=== PATIENT | male | born 1965 | race Caucasian/White ===

== ENCOUNTER 2016-02-11 16:40 | Inpatient (IN) | payer OTHER ==
[~2016-02-11] VITALS: Ht 177.8 cm; Wt 75.0 kg
[~2016-02-11 16:40] MED LIST: DOCU1CAP39 PO; MELO-1 PO; NEUR400C PO; OXYC-426 PO; WALKER WHEELS/F1 MIS; ZYVO600T PO
[2016-02-11 16:41] VITALS: BP 140/90; PULSE 97; RESP 18; TEMP 98.1; O2SAT 100
[2016-02-11] MEDS ORDERED: oxyCODONE/ACETAMINOPHEN 5 MG/325 MG TAB PO ONE (18:45)
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
[2016-02-11 19:43] LABS: BICARBONATE 27.4 MEQ/L (21.0-32.0); POTASSIUM 3.8 MEQ/L (3.5-5.1)
[2016-02-11 19:57] LABS: AUTOMATED NEUTROPHIL # 6.4 TH/MM3 (1.8-7.7); BASOPHIL # 0.1 TH/MM3 (0-0.2); BASOPHIL % 0.7 % (0.0-2.0); EOSINOPHIL # 0.6 TH/MM3 (0-0.4); EOSINOPHIL % 5.1 % (0.0-4.0); HEMATOCRIT 36.1 % (39.0-51.0); HEMO FLAGS DIFF FINAL; LYMPH % 27.7 % (9.0-44.0); LYMPHOCYTE # 3.1 TH/MM3 (1.0-4.8); MEAN CELL VOLUME 87.7 FL (80.0-100.0); MEAN CORPUSCULAR HEMOGLOBIN 28.3 PG (27.0-34.0); MEAN CORPUSCULAR HGB CONC 32.3 % (32.0-36.0); MONO % 8.6 % (0.0-8.0); NEUT % 57.9 % (16.0-70.0); PLATELET COUNT 419 TH/MM3 (150-450); RED BLOOD COUNT 4.12 MIL/MM3 (4.50-5.90); RED CELL DISTRIBUTION WIDTH 14.6 % (11.6-17.2); WHITE BLOOD COUNT 11.1 TH/MM3 (4.0-11.0)
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
[2016-02-11] MEDS ORDERED: ACETAMINOPHEN/HYDROcodone 325 MG/5 MG TAB PO PRN (21:00)
[2016-02-11] MEDS ORDERED: BISACODYL 10 MG SUPP PR PRN (21:00)
[2016-02-11] MEDS ORDERED: ONDANSETRON HCL 4 MG/2 ML VIAL IVP PRN (21:00)
[2016-02-11] MEDS ORDERED: ACETAMINOPHEN 325 MG TAB PO PRN (21:00)
[2016-02-11 21:02] LABS: APTT (PATIENT) 27.3 SEC (24.3-30.1); PROTHROMBIN TIME - PATIENT 11.2 SEC (9.8-11.6)
[2016-02-11 21:21] VITALS: BP 136/88; PULSE 88; RESP 18; TEMP 98; O2SAT 100
[2016-02-11] MEDS: SODIUM CHLORIDE 0.9% FLUSH 5 ML FLUSH FLUSH SCH (21:33)
[2016-02-11] MEDS: HEPARIN-D5W INJ 250 ML IV SCH (21:35)
[2016-02-11] MEDS: MORPHINE SULFATE 4 MG/ML INJ IV PRN (21:42)
[2016-02-11] MEDS ORDERED: Vancomycin Consult Pharmacy 1 EA OTHER SCH (22:45)
[2016-02-11] MEDS ORDERED: VANCOMYCIN 1,500 MG/NS 500 ML IV ONE ×2 (23:00)
[2016-02-12] VITALS: BP 137/80; PULSE 89; RESP 16; TEMP 97; O2SAT 92
[2016-02-12] MEDS: MORPHINE SULFATE 4 MG/ML INJ IV PRN ×6 (00:34→11:57)
[2016-02-12] MEDS ORDERED: HEPARIN SODIUM - IV 10,000 UNITS/10 ML VIAL IV PRN ×2 (02:45)
[2016-02-12 04:27] LABS: APTT (PATIENT) 36.9 SEC (24.3-30.1)
[2016-02-12 08:00] VITALS: BP 133/74; PULSE 84; RESP 18; TEMP 97.4; O2SAT 94
[2016-02-12] MEDS: GABAPENTIN 400 MG CAP PO SCH ×3 (08:14→16:34)
[2016-02-12] MEDS: SODIUM CHLORIDE 0.9% FLUSH 5 ML FLUSH FLUSH SCH ×2 (08:15→20:33)
[2016-02-12] MEDS: SODIUM CHLORIDE 0.9% FLUSH 5 ML FLUSH FLUSH PRN ×2 (09:08→16:33)
[2016-02-12 10:58] LABS: AUTOMATED NEUTROPHIL # 6.2 TH/MM3 (1.8-7.7); BASOPHIL # 0.1 TH/MM3 (0-0.2); BASOPHIL % 1.3 % (0.0-2.0); EOSINOPHIL # 0.7 TH/MM3 (0-0.4); EOSINOPHIL % 6.6 % (0.0-4.0); HEMATOCRIT 34.1 % (39.0-51.0); HEMO FLAGS DIFF FINAL; LYMPH % 26.7 % (9.0-44.0); LYMPHOCYTE # 2.9 TH/MM3 (1.0-4.8); MEAN CELL VOLUME 87.3 FL (80.0-100.0); MEAN CORPUSCULAR HEMOGLOBIN 28.7 PG (27.0-34.0); MEAN CORPUSCULAR HGB CONC 32.9 % (32.0-36.0); MONO % 8.2 % (0.0-8.0); NEUT % 57.2 % (16.0-70.0); PLATELET COUNT 337 TH/MM3 (150-450); RED BLOOD COUNT 3.91 MIL/MM3 (4.50-5.90); RED CELL DISTRIBUTION WIDTH 14.9 % (11.6-17.2); WHITE BLOOD COUNT 10.9 TH/MM3 (4.0-11.0)
[2016-02-12 11:10] LABS: APTT (PATIENT) 42.2 SEC (24.3-30.1)
[2016-02-12 11:12] LABS: ALT (GPT) 36 U/L (12-78); ANION GAP 10 MEQ/L (5-15); AST (GOT) 21 U/L (15-37); BICARBONATE 25.3 MEQ/L (21.0-32.0); BLOOD UREA NITROGEN 8 MG/DL (7-18); CHLORIDE 108 MEQ/L (98-107); GLOMERULAR FILTRATION RATE 117 ML/MIN (>89); POTASSIUM 3.9 MEQ/L (3.5-5.1); SODIUM (NA) 143 MEQ/L (136-145)
[2016-02-12 11:14] LABS: ALKALINE PHOSPHATASE 69 U/L (45-117); TOTAL BILIRUBIN ADULT 0.3 MG/DL (0.2-1.0)
[2016-02-12 12:00] VITALS: BP 128/78; PULSE 88; RESP 18; TEMP 96.8; O2SAT 94
[2016-02-12] MEDS: VANCOMYCIN 1,000 MG/NS 250 ML IV SCH ×4 (12:01→19:42)
[2016-02-12] MEDS: HEPARIN-D5W INJ 250 ML IV SCH (12:10)
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
[2016-02-12] MEDS: ACETAMINOPHEN/HYDROcodone 325 MG/10 MG TAB PO PRN ×3 (15:05→23:35)
[2016-02-12] MEDS: HYDROmorphone HCL PF 1 MG/ML VIAL IV PUSH PRN ×2 (16:31→20:39)
[2016-02-12 17:17] LABS: APTT (PATIENT) 45.3 SEC (24.3-30.1)
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
[2016-02-12 20:00] VITALS: BP 124/84; PULSE 92; RESP 19; TEMP 97.6; O2SAT 97
[2016-02-12] MEDS: CEFEPIME INJ 2,000 MG in SODIUM CHLORIDE 0.9% INJ 100 ML IV SCH (20:43)
[2016-02-13] MEDS: HYDROmorphone HCL PF 1 MG/ML VIAL IV PUSH PRN ×7 (00:35→22:49)
[2016-02-13] MEDS: ACETAMINOPHEN/HYDROcodone 325 MG/10 MG TAB PO PRN ×5 (02:36→20:37)
[2016-02-13] MEDS ORDERED: PHARMACY ORDERED LAB XX ONE (03:45)
[2016-02-13] MEDS: CEFEPIME INJ 2,000 MG in SODIUM CHLORIDE 0.9% INJ 100 ML IV SCH ×3 (04:10→20:16)
[2016-02-13] MEDS: HEPARIN-D5W INJ 250 ML IV SCH ×2 (04:29→21:08)
[2016-02-13] MEDS: VANCOMYCIN 1,000 MG/NS 250 ML IV SCH ×2 (04:45)
[2016-02-13 07:05] LABS: APTT (PATIENT) 39.9 SEC (24.3-30.1)
[2016-02-13 08:00] VITALS: BP 115/75; PULSE 87; RESP 17; TEMP 95.6; O2SAT 98
[2016-02-13] MEDS: SODIUM CHLORIDE 0.9% FLUSH 5 ML FLUSH FLUSH SCH ×2 (08:11→20:16)
[2016-02-13] MEDS: GABAPENTIN 400 MG CAP PO SCH ×3 (08:11→16:55)
[2016-02-13 12:00] VITALS: BP 140/80; PULSE 94; RESP 18; TEMP 97.7; O2SAT 99
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
[2016-02-13] MEDS ORDERED: VANCOMYCIN 1,000 MG/NS 250 ML IV SCH ×2 (14:00)
[2016-02-13 16:00] VITALS: BP 123/73; PULSE 96; RESP 17; TEMP 98.7; O2SAT 96
[2016-02-13 20:00] VITALS: BP 140/83; PULSE 84; RESP 21; TEMP 98.4; O2SAT 96
[2016-02-13] MEDS: SODIUM CHLORIDE 0.9% FLUSH 5 ML FLUSH FLUSH PRN (22:48)
[2016-02-14] VITALS: BP 132/81; PULSE 82; RESP 21; TEMP 97.1; O2SAT 98
[2016-02-14] MEDS: ACETAMINOPHEN/HYDROcodone 325 MG/10 MG TAB PO PRN ×5 (00:40→21:39)
[2016-02-14] MEDS: HYDROmorphone HCL PF 1 MG/ML VIAL IV PUSH PRN ×6 (02:58→23:28)
[2016-02-14] MEDS: SODIUM CHLORIDE 0.9% FLUSH 5 ML FLUSH FLUSH PRN ×3 (02:58→06:09)
[2016-02-14] MEDS: CEFEPIME INJ 2,000 MG in SODIUM CHLORIDE 0.9% INJ 100 ML IV SCH ×3 (04:50→19:41)
[2016-02-14 05:44] LABS: HEMATOCRIT 31.6 % (39.0-51.0); MEAN CELL VOLUME 87.5 FL (80.0-100.0); MEAN CORPUSCULAR HEMOGLOBIN 29.4 PG (27.0-34.0); MEAN CORPUSCULAR HGB CONC 33.6 % (32.0-36.0); PLATELET COUNT 291 TH/MM3 (150-450); RED BLOOD COUNT 3.62 MIL/MM3 (4.50-5.90); RED CELL DISTRIBUTION WIDTH 14.4 % (11.6-17.2); REVIEW FLAG FINAL; WHITE BLOOD COUNT 10.2 TH/MM3 (4.0-11.0)
[2016-02-14] MEDS ORDERED: PHARMACY ORDERED LAB XX ONE (05:45)
[2016-02-14 05:55] LABS: PROTHROMBIN TIME - PATIENT 10.7 SEC (9.8-11.6)
[2016-02-14 08:00] VITALS: BP 143/84; PULSE 86; RESP 17; TEMP 97.4; O2SAT 98
[2016-02-14] MEDS: GABAPENTIN 400 MG CAP PO SCH ×6 (08:27→17:38)
[2016-02-14] MEDS: SODIUM CHLORIDE 0.9% FLUSH 5 ML FLUSH FLUSH SCH ×2 (08:30→19:45)
[2016-02-14 12:00] VITALS: BP 152/80; PULSE 73; RESP 17; TEMP 97.6; O2SAT 98
[2016-02-14] MEDS ORDERED: PROPOFOL 200 MG/20 ML AMP IV ONE (12:00)
[2016-02-14] MEDS ORDERED: *morphine SULFATE 8 MG/ML PERIprocedure ONLY ONE (14:26)
[2016-02-14] MEDS ORDERED: DO NOT ADM ANY ANTICOAGULANT DRUGS XX PRN (14:45)
[2016-02-14 15:58] LABS: APTT (PATIENT) 26.8 SEC (24.3-30.1)
[2016-02-14 16:00] VITALS: BP 152/92; PULSE 87; RESP 18; TEMP 97.1; O2SAT 99
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
[2016-02-14] MEDS ORDERED: HEPARIN SODIUM - IV 10,000 UNITS/10 ML VIAL IV PRN ×2 (18:00)
[2016-02-14] MEDS: HEPARIN-D5W INJ 250 ML IV SCH (18:44)
[2016-02-14 20:00] VITALS: BP 133/86; PULSE 78; RESP 20; TEMP 98; O2SAT 97
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
[2016-02-15] VITALS: BP 128/82; PULSE 80; RESP 20; TEMP 97; O2SAT 96
[2016-02-15] MEDS: ACETAMINOPHEN/HYDROcodone 325 MG/10 MG TAB PO PRN ×6 (01:34→22:03)
[2016-02-15] MEDS: HYDROmorphone HCL PF 1 MG/ML VIAL IV PUSH PRN ×6 (03:28→23:57)
[2016-02-15] MEDS: CEFEPIME INJ 2,000 MG in SODIUM CHLORIDE 0.9% INJ 100 ML IV SCH ×3 (03:28→20:29)
[2016-02-15] MEDS: HEPARIN-D5W INJ 250 ML IV SCH ×2 (04:36→20:38)
[2016-02-15] MEDS: SODIUM CHLORIDE 0.9% FLUSH 5 ML FLUSH FLUSH SCH ×2 (07:34→20:30)
[2016-02-15] MEDS: GABAPENTIN 400 MG CAP PO SCH ×3 (07:34→17:35)
[2016-02-15 08:00] VITALS: BP 155/68; PULSE 82; RESP 18; TEMP 97.2; O2SAT 97
[2016-02-15 08:33] LABS: APTT (PATIENT) 40.4 SEC (24.3-30.1)
[2016-02-15 12:00] VITALS: BP 152/92; PULSE 92; RESP 18; TEMP 98.3; O2SAT 99
[2016-02-15 16:00] VITALS: BP 127/82; PULSE 88; RESP 18; TEMP 98.3; O2SAT 95
[2016-02-15 17:16] LABS: APTT (PATIENT) 41.1 SEC (24.3-30.1)
[2016-02-15 18:16] VITALS: O2SAT 95
[2016-02-15 20:00] VITALS: BP 139/75; PULSE 96; RESP 20; TEMP 97.2; O2SAT 97
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
[2016-02-16] VITALS: BP 128/78; PULSE 88; RESP 18; TEMP 97.2; O2SAT 98
[2016-02-16] MEDS: ACETAMINOPHEN/HYDROcodone 325 MG/10 MG TAB PO PRN ×6 (02:02→22:02)
[2016-02-16] MEDS: CEFEPIME INJ 2,000 MG in SODIUM CHLORIDE 0.9% INJ 100 ML IV SCH ×2 (03:58→11:55)
[2016-02-16] MEDS: HYDROmorphone HCL PF 1 MG/ML VIAL IV PUSH PRN ×5 (03:59→20:03)
[2016-02-16 06:32] LABS: AUTOMATED NEUTROPHIL # 4.4 TH/MM3 (1.8-7.7); BASOPHIL # 0.1 TH/MM3 (0-0.2); BASOPHIL % 0.9 % (0.0-2.0); HEMATOCRIT 32.4 % (39.0-51.0); LYMPH % 33.8 % (9.0-44.0); LYMPHOCYTE # 3.6 TH/MM3 (1.0-4.8); MEAN CELL VOLUME 87.2 FL (80.0-100.0); MEAN CORPUSCULAR HEMOGLOBIN 29.1 PG (27.0-34.0); MEAN CORPUSCULAR HGB CONC 33.4 % (32.0-36.0); MONO % 14.6 % (0.0-8.0); NEUT % 41.7 % (16.0-70.0); PLATELET COUNT 343 TH/MM3 (150-450); RED BLOOD COUNT 3.71 MIL/MM3 (4.50-5.90); WHITE BLOOD COUNT 10.6 TH/MM3 (4.0-11.0)
[2016-02-16 06:39] LABS: HEMO FLAGS AUTO DIFF
[2016-02-16 06:51] LABS: APTT (PATIENT) 42.9 SEC (24.3-30.1)
[2016-02-16 07:00] LABS: BICARBONATE 25.9 MEQ/L (21.0-32.0)
[2016-02-16 08:00] VITALS: BP 135/88; PULSE 83; RESP 18; TEMP 97.6; O2SAT 100
[2016-02-16] MEDS: GABAPENTIN 400 MG CAP PO SCH ×3 (08:01→16:07)
[2016-02-16] MEDS: SODIUM CHLORIDE 0.9% FLUSH 5 ML FLUSH FLUSH SCH ×2 (08:01→20:05)
[2016-02-16 08:02] LABS: SCAN/DIFF AUTO DIFF CONFIRMED
[2016-02-16 12:00] VITALS: BP 126/78; PULSE 79; RESP 18; TEMP 97.1; O2SAT 97
[2016-02-16] MEDS: HEPARIN-D5W INJ 250 ML IV SCH (13:07)
[2016-02-16 16:00] VITALS: BP 125/73; PULSE 90; RESP 17; TEMP 97.5; O2SAT 99
[2016-02-16] MEDS: LEVOFLOXACIN 750 MG TAB PO SCH (16:07)
[2016-02-16 20:00] VITALS: BP 133/84; PULSE 89; RESP 20; TEMP 97; O2SAT 97
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
[2016-02-16] MEDS ORDERED: WARFARIN SOD 3 MG TAB PO ONE (21:45)
[2016-02-16 23:35] VITALS: BP 128/81; PULSE 88; RESP 18; TEMP 97.4; O2SAT 97
[2016-02-17] MEDS: HYDROmorphone HCL PF 1 MG/ML VIAL IV PUSH PRN ×7 (00:05→23:58)
[2016-02-17] MEDS: ACETAMINOPHEN/HYDROcodone 325 MG/10 MG TAB PO PRN ×6 (02:07→21:59)
[2016-02-17 05:51] LABS: HEMATOCRIT 33.5 % (39.0-51.0); MEAN CELL VOLUME 88.2 FL (80.0-100.0); MEAN CORPUSCULAR HEMOGLOBIN 28.9 PG (27.0-34.0); MEAN CORPUSCULAR HGB CONC 32.8 % (32.0-36.0); PLATELET COUNT 338 TH/MM3 (150-450); RED CELL DISTRIBUTION WIDTH 15.2 % (11.6-17.2); REVIEW FLAG FINAL; WHITE BLOOD COUNT 9.6 TH/MM3 (4.0-11.0)
[2016-02-17] MEDS: HEPARIN-D5W INJ 250 ML IV SCH (05:52)
[2016-02-17 06:06] LABS: APTT (PATIENT) 43.6 SEC (24.3-30.1); PROTHROMBIN TIME - PATIENT 11.1 SEC (9.8-11.6)
[2016-02-17 08:00] VITALS: BP 126/64; PULSE 97; RESP 17; TEMP 97.2; O2SAT 99
[2016-02-17] MEDS: SODIUM CHLORIDE 0.9% FLUSH 5 ML FLUSH FLUSH SCH ×2 (08:04→21:00)
[2016-02-17] MEDS: LEVOFLOXACIN 750 MG TAB PO SCH (08:04)
[2016-02-17] MEDS: GABAPENTIN 400 MG CAP PO SCH ×3 (08:04→18:05)
[2016-02-17 11:00] VITALS: O2SAT 99
[2016-02-17 12:00] VITALS: BP 113/81; PULSE 90; RESP 16; TEMP 97.1; O2SAT 97
--- NOTE | 2016-02-17 13:13 | PD.PLAS.PN ---
Subjective Remarks Patient stable, ambulating pain under control No active bleeding from wound. Back on Heparin and will be getting COumadin as well OK to continue daily wound care only as the patient does not want to have a skin graft. He does not have a home - may need daily visits to the community clinic or wound care canter [place] to discharge from plastic surgery. Vital Signs Date Time Temp Pulse Resp B/P Pulse Ox O2 Delivery O2 Flow Rate FiO2 02/17/16 12:00 97.1 90 16 113/81 97 02/17/16 11:00 99 21 02/17/16 08:00 97.2 97 17 126/64 99 02/16/16 23:35 97.4 88 18 128/81 97 02/16/16 20:00 97.0 89 20 133/84 97 02/16/16 18:34 21 02/16/16 16:00 97.5 90 17 125/73 99 I/O 02/16/16 02/16/16 02/16/16 02/17/16 02/17/16 02/17/16 07:00 15:00 23:00 07:00 15:00 23:00 Intake Total 820 ml 2426 ml 840 ml 760 ml Output Total 1100 ml Balance -280 ml 2426 ml 840 ml 760 ml Intake Oral 720 ml 1680 ml 760 ml 760 ml IV Total 100 ml 746 ml 80 ml 0 ml Output Urine Total 1100 ml # Voids 8 3 2 # Bowel Movements 0 1 Laboratory Tests Test 02/17/16 05:19 White Blood Count 9.6 Red Blood Count 3.80 Hemoglobin 11.0 Hematocrit 33.5 Mean Corpuscular Volume 88.2 Mean Corpuscular Hemoglobin 28.9 Mean Corpuscular Hemoglobin 32.8 Concent Red Cell Distribution Width 15.2 Platelet Count 338 Mean Platelet Volume 6.4 Prothrombin Time 11.1 Prothromb Time International 1.0 Ratio Activated Partial 43.6 Thromboplast Time Result Diagram: 02/17/16 0519 02/16/16 0559 Leonid Patrick MD Feb 17, 2016 13:12
[2016-02-17 16:00] VITALS: BP 135/84; PULSE 83; RESP 17; TEMP 97.8; O2SAT 94
[2016-02-17] MEDS ORDERED: WARFARIN SOD 3 MG TAB PO SCH (16:00)
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
[2016-02-17] MEDS ORDERED: WARFARIN SOD 5 MG TAB PO ONE (17:30)
[2016-02-17 20:00] VITALS: BP 113/68; PULSE 91; RESP 21; TEMP 96.3; O2SAT 98
[2016-02-18] VITALS: BP 114/80; PULSE 88; RESP 21; TEMP 98; O2SAT 96
[2016-02-18] MEDS: HEPARIN-D5W INJ 250 ML IV SCH ×2 (00:12→16:59)
[2016-02-18] MEDS: ACETAMINOPHEN/HYDROcodone 325 MG/10 MG TAB PO PRN ×6 (01:58→22:21)
[2016-02-18] MEDS: HYDROmorphone HCL PF 1 MG/ML VIAL IV PUSH PRN ×5 (03:57→20:17)
[2016-02-18 05:12] LABS: APTT (PATIENT) 41.7 SEC (24.3-30.1); PROTHROMBIN TIME - PATIENT 11.3 SEC (9.8-11.6)
[2016-02-18 08:00] VITALS: BP 126/74; PULSE 94; RESP 20; TEMP 98; O2SAT 95
[2016-02-18] MEDS: SODIUM CHLORIDE 0.9% FLUSH 5 ML FLUSH FLUSH SCH ×2 (08:26→20:19)
[2016-02-18] MEDS: GABAPENTIN 400 MG CAP PO SCH ×3 (08:26→16:19)
[2016-02-18] MEDS: LEVOFLOXACIN 750 MG TAB PO SCH (08:26)
[2016-02-18 12:00] VITALS: BP 123/82; PULSE 101; RESP 20; TEMP 98.2; O2SAT 98
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
[2016-02-18 16:00] VITALS: BP 116/55; PULSE 103; RESP 22; TEMP 97.4; O2SAT 95
[2016-02-18] MEDS ORDERED: WARFARIN SOD 5 MG TAB PO SCH (16:00)
[2016-02-18] MEDS: WARFARIN SOD 6 MG TAB PO SCH (16:19)
[2016-02-18 20:00] VITALS: BP 131/89; PULSE 97; RESP 21; TEMP 97.5; O2SAT 100
[2016-02-19] VITALS: BP 121/88; PULSE 96; RESP 21; TEMP 96.8; O2SAT 96
[2016-02-19] MEDS: HYDROmorphone HCL PF 1 MG/ML VIAL IV PUSH PRN ×6 (00:17→20:20)
[2016-02-19] MEDS: ACETAMINOPHEN/HYDROcodone 325 MG/10 MG TAB PO PRN ×6 (02:15→22:24)
[2016-02-19 05:28] LABS: APTT (PATIENT) 56.4 SEC (24.3-30.1); INTERNATIONAL NORMALIZED RATIO 1.4 RATIO; PROTHROMBIN TIME - PATIENT 15.8 SEC (9.8-11.6)
[2016-02-19 08:00] VITALS: BP 134/88; PULSE 108; RESP 18; TEMP 96.8; O2SAT 99
[2016-02-19] MEDS: GABAPENTIN 400 MG CAP PO SCH ×3 (08:23→16:36)
[2016-02-19] MEDS: SODIUM CHLORIDE 0.9% FLUSH 5 ML FLUSH FLUSH SCH ×2 (08:23→20:13)
[2016-02-19] MEDS: LEVOFLOXACIN 750 MG TAB PO SCH (08:23)
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
[2016-02-19] MEDS: HEPARIN-D5W INJ 250 ML IV SCH (10:26)
[2016-02-19 12:00] VITALS: BP 128/77; PULSE 103; RESP 17; TEMP 97.4; O2SAT 96
[2016-02-19 16:00] VITALS: BP 135/80; PULSE 103; RESP 18; TEMP 98.1; O2SAT 96
[2016-02-19] MEDS: WARFARIN SOD 6 MG TAB PO SCH (16:35)
[2016-02-19 20:00] VITALS: BP 128/74; PULSE 105; RESP 18; TEMP 98.1; O2SAT 95
[2016-02-20] VITALS: BP 124/67; PULSE 102; RESP 18; TEMP 96.9; O2SAT 95
[2016-02-20] MEDS: HYDROmorphone HCL PF 1 MG/ML VIAL IV PUSH PRN ×6 (00:30→20:37)
[2016-02-20] MEDS: ACETAMINOPHEN/HYDROcodone 325 MG/10 MG TAB PO PRN ×6 (02:25→22:36)
[2016-02-20] MEDS: HEPARIN-D5W INJ 250 ML IV SCH ×2 (04:44→22:08)
[2016-02-20 05:49] LABS: APTT (PATIENT) 61.6 SEC (24.3-30.1)
[2016-02-20 06:04] LABS: INTERNATIONAL NORMALIZED RATIO 1.7 RATIO; PROTHROMBIN TIME - PATIENT 19.3 SEC (9.8-11.6)
[2016-02-20 08:00] VITALS: BP 122/85; PULSE 101; RESP 19; TEMP 95.4; O2SAT 98
[2016-02-20] MEDS: GABAPENTIN 400 MG CAP PO SCH ×3 (08:27→16:26)
[2016-02-20] MEDS: LEVOFLOXACIN 750 MG TAB PO SCH (08:30)
[2016-02-20] MEDS: SODIUM CHLORIDE 0.9% FLUSH 5 ML FLUSH FLUSH SCH ×2 (08:31→20:41)
[2016-02-20 09:27] LABS: HEMATOCRIT 34.1 % (39.0-51.0); MEAN CELL VOLUME 87.5 FL (80.0-100.0); MEAN CORPUSCULAR HEMOGLOBIN 28.7 PG (27.0-34.0); MEAN CORPUSCULAR HGB CONC 32.8 % (32.0-36.0); PLATELET COUNT 339 TH/MM3 (150-450); RED BLOOD COUNT 3.89 MIL/MM3 (4.50-5.90); RED CELL DISTRIBUTION WIDTH 14.7 % (11.6-17.2); REVIEW FLAG FINAL; WHITE BLOOD COUNT 8.8 TH/MM3 (4.0-11.0)
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
[2016-02-20 12:00] VITALS: BP 188/106; PULSE 109; RESP 23; TEMP 97.1; O2SAT 98
[2016-02-20 16:00] VITALS: BP 138/94; PULSE 92; RESP 18; TEMP 97.2; O2SAT 99
[2016-02-20] MEDS: WARFARIN SOD 6 MG TAB PO SCH (16:26)
[2016-02-20 20:00] VITALS: BP 142/88; PULSE 89; RESP 20; TEMP 96.4; O2SAT 100
[2016-02-21] VITALS: BP 138/76; PULSE 91; RESP 20; TEMP 96.9; O2SAT 96
[2016-02-21] MEDS: HYDROmorphone HCL PF 1 MG/ML VIAL IV PUSH PRN ×6 (00:32→20:37)
[2016-02-21] MEDS: ACETAMINOPHEN/HYDROcodone 325 MG/10 MG TAB PO PRN ×6 (02:26→22:40)
[2016-02-21 05:41] LABS: INTERNATIONAL NORMALIZED RATIO 2.3 RATIO; PROTHROMBIN TIME - PATIENT 25.8 SEC (9.8-11.6)
[2016-02-21 08:00] VITALS: BP 130/86; PULSE 99; RESP 19; TEMP 96.5; O2SAT 98
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
[2016-02-21] MEDS ORDERED: HYDR-3516 PO (08:07)
[2016-02-21] MEDS ORDERED: COUM5TAB PO (08:07)
[2016-02-21] MEDS: LEVOFLOXACIN 750 MG TAB PO SCH (08:27)
[2016-02-21] MEDS: GABAPENTIN 400 MG CAP PO SCH ×3 (08:27→16:21)
[2016-02-21] MEDS: SODIUM CHLORIDE 0.9% FLUSH 5 ML FLUSH FLUSH SCH ×2 (08:58→20:37)
[2016-02-21 12:00] VITALS: BP 120/86; PULSE 103; RESP 17; TEMP 96.8; O2SAT 99
[2016-02-21 12:43] LABS: APTT (PATIENT) 35.9 SEC (24.3-30.1)
[2016-02-21 16:00] VITALS: BP 119/78; PULSE 96; RESP 16; TEMP 97.3; O2SAT 96
[2016-02-21] MEDS: WARFARIN SOD 6 MG TAB PO SCH (16:21)
[2016-02-21 20:00] VITALS: BP 128/62; PULSE 101; RESP 18; TEMP 97.5; O2SAT 94
[2016-02-22] VITALS: BP 137/85; PULSE 98; RESP 16; TEMP 97.3; O2SAT 98
[2016-02-22] MEDS: HYDROmorphone HCL PF 1 MG/ML VIAL IV PUSH PRN ×6 (00:41→20:36)
[2016-02-22] MEDS: ACETAMINOPHEN/HYDROcodone 325 MG/10 MG TAB PO PRN ×5 (02:47→22:33)
[2016-02-22] MEDS: SODIUM CHLORIDE 0.9% FLUSH 5 ML FLUSH FLUSH PRN (04:24)
[2016-02-22 05:40] LABS: APTT (PATIENT) 38.7 SEC (24.3-30.1); INTERNATIONAL NORMALIZED RATIO 2.5 RATIO; PROTHROMBIN TIME - PATIENT 29.3 SEC (9.8-11.6)
[2016-02-22 08:00] VITALS: BP 100/56; PULSE 86; RESP 17; TEMP 96.7; O2SAT 96
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
[2016-02-22] MEDS: GABAPENTIN 400 MG CAP PO SCH ×3 (08:26→16:24)
[2016-02-22] MEDS: LEVOFLOXACIN 750 MG TAB PO SCH (08:26)
[2016-02-22] MEDS: SODIUM CHLORIDE 0.9% FLUSH 5 ML FLUSH FLUSH SCH ×2 (08:33→20:38)
--- NOTE | 2016-02-22 11:28 | RADRPT ---
EXAM DATE/TIME: 02/22/2016 11:13 [facility] COMPARISON: US LEG LEFT VENOUS DOPPLER, February 11, 2016, 19:20. INDICATIONS : Pain medial side of ankle and swelling in left foot MEDICAL HISTORY : None. SURGICAL HISTORY : Left ankle fasciotomy. Iliac arterty repair ENCOUNTER: Initial ACUITY: 2 months PAIN SCORE: 3/10 LOCATION: Left Foot FINDINGS: Three view examination of the left foot demonstrates no soft tissue swelling, dislocation, or fractur e. The tarsal bones appear intact. The interphalangeal and metatarsophalangeal joints are intact. The calcaneus is intact. Bony mineralization is normal. CONCLUSION: No acute disease. Felipa Guerrero MD on February 22, 2016 at 11:26 Board Certified Radiologist. This report was verified electronically.
[2016-02-22 16:00] VITALS: BP 131/80; PULSE 106; RESP 18; TEMP 96.9; O2SAT 96
[2016-02-22] MEDS ORDERED: WARFARIN SOD 5 MG TAB PO SCH (16:00)
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
[2016-02-22 20:05] VITALS: BP 127/79; PULSE 89; RESP 18; TEMP 97.2; O2SAT 100
[2016-02-22 23:36] VITALS: BP 117/76; PULSE 103; RESP 18; TEMP 97.9; O2SAT 100
[2016-02-23] MEDS: HYDROmorphone HCL PF 1 MG/ML VIAL IV PUSH PRN ×2 (01:24→05:30)
[2016-02-23] MEDS: ACETAMINOPHEN/HYDROcodone 325 MG/10 MG TAB PO PRN ×2 (03:13→07:42)
[2016-02-23 04:49] LABS: HEMATOCRIT 33.1 % (39.0-51.0); MEAN CELL VOLUME 85.8 FL (80.0-100.0); MEAN CORPUSCULAR HEMOGLOBIN 27.9 PG (27.0-34.0); MEAN CORPUSCULAR HGB CONC 32.5 % (32.0-36.0); PLATELET COUNT 329 TH/MM3 (150-450); RED BLOOD COUNT 3.86 MIL/MM3 (4.50-5.90); RED CELL DISTRIBUTION WIDTH 14.7 % (11.6-17.2); REVIEW FLAG FINAL; WHITE BLOOD COUNT 9.5 TH/MM3 (4.0-11.0)
[2016-02-23 04:55] LABS: APTT (PATIENT) 39.7 SEC (24.3-30.1); INTERNATIONAL NORMALIZED RATIO 2.6 RATIO; PROTHROMBIN TIME - PATIENT 29.9 SEC (9.8-11.6)
[2016-02-23] MEDS: GABAPENTIN 400 MG CAP PO SCH (07:42)
[2016-02-23] MEDS: SODIUM CHLORIDE 0.9% FLUSH 5 ML FLUSH FLUSH SCH (07:42)
[2016-02-23] MEDS: LEVOFLOXACIN 750 MG TAB PO SCH (07:42)
[2016-02-23 08:10] VITALS: BP 123/67; PULSE 94; RESP 20; TEMP 97.3; O2SAT 97
[2016-02-23 08:42] VITALS: RESP 18
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
--- NOTE | 2016-02-23 08:45 | HHI.DCPOC ---
Discharge Care Plan Diagnosis: (1) Open wound, lower leg (2) Deep vein thrombosis (DVT) of left lower extremity Your Health Problems Are: Chronic Pain Goals to Promote Your Health * To prevent worsening of your condition and complications * To maintain your health at the optimal level Directions to Meet Your Goals Take your medications as prescribed Follow your dietary instruction Follow activity as directed Keep your appointments as scheduled Take your immunizations and boosters as scheduled If your symptoms worsen call your PCP, if no PCP go to Urgent Care Center or Emergency Room Smoking is Dangerous to Your Health. Avoid second hand smoke Call the 24-hour hour crisis hotline for domestic abuse at Artis Childs MD Feb 23, 2016 08:45
== END 2016-02-23 11:51 | disposition home or self-care (01) | DRG 857 ==
LOC: NEPE 16:40 → NEDA 20:53 → N07A 23:07
PROVIDERS: ADMIT Internal Medicine; ATTEND Internal Medicine
PROC: 0JCP0ZZ Extirpation of Matter from Left Lower Leg Subcutaneous Tissue and Fascia, Open Approach (ICD-10-PCS; 2016-02-14)
PROC: 0JBP0ZZ Excision of Left Lower Leg Subcutaneous Tissue and Fascia, Open Approach (ICD-10-PCS; principal; 2016-02-14 13:21)
DX: T81.4XXA Infection following a procedure, initial encounter (principal); I82.412 Acute embolism and thrombosis of left femoral vein; T79.A0XA Compartment syndrome, unspecified, initial encounter; F17.200 Nicotine dependence, unspecified, uncomplicated; M19.90 Unspecified osteoarthritis, unspecified site; Z79.01 Long term (current) use of anticoagulants; Z59.0 Homelessness
CPT/HCPCS: 73630; 80048; 80053; 80202; 85025; 85027; 85610; 85730; 87070; 87077; 87186; 87205; 93971; J0692; J1170; J1644; J2270; J2405; J3010; J3370; J7040; J7050

== ENCOUNTER 2016-03-22 12:35 | Inpatient (IN) | payer OTHER ==
[~2016-03-22] VITALS: Ht 177.8 cm; Wt 80.0 kg
[~2016-03-22 12:35] MED LIST changes: +COUM5TAB PO; -DOCU1CAP39 PO; +HYDR-3516 PO; -MELO-1 PO; -OXYC-426 PO; -ZYVO600T PO
[2016-03-22 12:37] VITALS: BP 179/89; PULSE 107; RESP 14; TEMP 97.9; O2SAT 100
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
[2016-03-22 17:04] VITALS: BP 151/95; PULSE 80; RESP 18; O2SAT 98
[2016-03-22 17:07] LABS: AUTOMATED NEUTROPHIL # 5.6 TH/MM3 (1.8-7.7); BASOPHIL # 0.1 TH/MM3 (0-0.2); EOSINOPHIL # 0.4 TH/MM3 (0-0.4); EOSINOPHIL % 3.6 % (0.0-4.0); HEMATOCRIT 36.4 % (39.0-51.0); HEMO FLAGS DIFF FINAL; LYMPH % 33.6 % (9.0-44.0); LYMPHOCYTE # 3.7 TH/MM3 (1.0-4.8); MEAN CELL VOLUME 85.3 FL (80.0-100.0); MEAN CORPUSCULAR HGB CONC 32.8 % (32.0-36.0); MONO % 10.6 % (0.0-8.0); NEUT % 51.2 % (16.0-70.0); PLATELET COUNT 441 TH/MM3 (150-450); RED BLOOD COUNT 4.26 MIL/MM3 (4.50-5.90); RED CELL DISTRIBUTION WIDTH 16.1 % (11.6-17.2); WHITE BLOOD COUNT 10.9 TH/MM3 (4.0-11.0)
[2016-03-22 17:22] LABS: APTT (PATIENT) 36.5 SEC (24.3-30.1); INTERNATIONAL NORMALIZED RATIO 1.8 RATIO; PROTHROMBIN TIME - PATIENT 20.7 SEC (9.8-11.6)
[2016-03-22 17:28] LABS: BICARBONATE 30.1 MEQ/L (21.0-32.0); POTASSIUM 3.4 MEQ/L (3.5-5.1)
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
[2016-03-22] MEDS ORDERED: KETOROLAC TROMETHAMINE 60 MG/2 ML (IM) VIAL IM ONE (18:15)
[2016-03-22] MEDS ORDERED: KETOROLAC TROMETHAMINE 30 MG/ML (IVP) VIAL IV PUSH ONE (18:45)
[2016-03-22] MEDS ORDERED: MORPHINE SULFATE 4 MG/ML INJ IV PUSH ONE (19:15)
[2016-03-22] MEDS ORDERED: ENOXAPARIN SODIUM 80 MG/0.8 ML SYRINGE SQ ONE (20:00)
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
[2016-03-22] MEDS ORDERED: ONDANSETRON HCL 4 MG/2 ML VIAL IVP PRN (23:45)
[2016-03-22] MEDS ORDERED: SODIUM CHLORIDE 0.9% FLUSH 5 ML FLUSH FLUSH PRN (23:45)
[2016-03-22] MEDS ORDERED: ACETAMINOPHEN 325 MG TAB PO PRN (23:45)
[2016-03-23] MEDS: oxyCODONE/ACETAMINOPHEN 10 MG/325 MG TAB PO PRN ×2 (00:12→06:19)
[2016-03-23] MEDS ORDERED: NALOXONE HCL 0.4 MG/ML AMP IV PRN (00:15)
[2016-03-23] MEDS ORDERED: oxyCODONE/ACETAMINOPHEN 5 MG/325 MG TAB PO PRN (00:15)
[2016-03-23 00:53] VITALS: BP 143/79; PULSE 78; RESP 20; TEMP 97.6; O2SAT 98
[2016-03-23] MEDS: MORPHINE SULFATE 4 MG/ML INJ IV PRN ×4 (02:08→20:49)
[2016-03-23] MEDS ORDERED: HEPARIN-D5W INJ 250 ML IV SCH (04:45)
[2016-03-23 04:47] VITALS: BP 119/68; PULSE 79; RESP 20; TEMP 98.3; O2SAT 95
[2016-03-23 07:29] LABS: AUTOMATED NEUTROPHIL # 3.8 TH/MM3 (1.8-7.7); BASOPHIL # 0.1 TH/MM3 (0-0.2); EOSINOPHIL # 0.5 TH/MM3 (0-0.4); EOSINOPHIL % 5.6 % (0.0-4.0); HEMATOCRIT 34.3 % (39.0-51.0); HEMO FLAGS DIFF FINAL; LYMPH % 40.6 % (9.0-44.0); LYMPHOCYTE # 3.7 TH/MM3 (1.0-4.8); MEAN CELL VOLUME 86.2 FL (80.0-100.0); MEAN CORPUSCULAR HEMOGLOBIN 28.1 PG (27.0-34.0); MEAN CORPUSCULAR HGB CONC 32.6 % (32.0-36.0); MONO % 11.4 % (0.0-8.0); NEUT % 41.4 % (16.0-70.0); PLATELET COUNT 358 TH/MM3 (150-450); RED BLOOD COUNT 3.98 MIL/MM3 (4.50-5.90); WHITE BLOOD COUNT 9.2 TH/MM3 (4.0-11.0)
[2016-03-23 07:46] LABS: ALT (GPT) 27 U/L (12-78); ANION GAP 7 MEQ/L (5-15); BICARBONATE 27.3 MEQ/L (21.0-32.0); BLOOD UREA NITROGEN 11 MG/DL (7-18); CHLORIDE 107 MEQ/L (98-107); GLOMERULAR FILTRATION RATE 103 ML/MIN (>89); POTASSIUM 3.5 MEQ/L (3.5-5.1); SODIUM (NA) 141 MEQ/L (136-145)
[2016-03-23 07:52] VITALS: BP 129/70; PULSE 60; RESP 19; TEMP 95.3; O2SAT 98
[2016-03-23 08:01] LABS: ALKALINE PHOSPHATASE 76 U/L (45-117); AST (GOT) 15 U/L (15-37); TOTAL BILIRUBIN ADULT 0.2 MG/DL (0.2-1.0)
[2016-03-23] MEDS: SODIUM CHLORIDE 0.9% FLUSH 5 ML FLUSH FLUSH SCH ×2 (08:19→20:49)
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
[2016-03-23 10:58] LABS: APTT (PATIENT) 62.1 SEC (24.3-30.1); INTERNATIONAL NORMALIZED RATIO 1.8 RATIO; PROTHROMBIN TIME - PATIENT 20.1 SEC (9.8-11.6)
[2016-03-23 11:36] VITALS: BP 108/73; PULSE 62; RESP 18; TEMP 97.2; O2SAT 100
[2016-03-23] MEDS ORDERED: ACETAMINOPHEN/HYDROcodone 325 MG/5 MG TAB PO PRN (12:00)
[2016-03-23] MEDS: ACETAMINOPHEN/HYDROcodone 325 MG/7.5 MG TAB PO PRN ×2 (13:43→17:53)
[2016-03-23 13:49] LABS: APTT (PATIENT) 39.8 SEC (24.3-30.1)
[2016-03-23] MEDS ORDERED: WARFARIN SOD 5 MG TAB PO SCH (16:00)
[2016-03-23 16:06] VITALS: BP 120/81; PULSE 76; RESP 18; TEMP 96.6; O2SAT 96
[2016-03-23] MEDS ORDERED: ZINC OXIDE 40% OINT 60 GM TUBE TOPICAL PRN (17:15)
[2016-03-23] MEDS: SILVER SULFADIAZINE 1% CR 400 GM JAR TOPICAL SCH (17:53)
[2016-03-23 20:39] VITALS: BP 122/81; PULSE 82; RESP 18; TEMP 97.5; O2SAT 97
[2016-03-23] MEDS: DOCUSATE SODIUM 100 MG CAP PO SCH (20:48)
[2016-03-23] MEDS: RIVAROXABAN 15 MG TAB PO SCH (20:48)
[2016-03-24] MEDS: MORPHINE SULFATE 4 MG/ML INJ IV PRN ×2 (01:17→04:41)
[2016-03-24] MEDS ORDERED: SILV1CRE20 TOPICAL (07:24)
[2016-03-24] MEDS ORDERED: XARE20TA PO (07:24)
[2016-03-24] MEDS ORDERED: HYDR-3516 PO (07:24)
[2016-03-24] MEDS ORDERED: XARE15TA PO (07:24)
[2016-03-24] MEDS ORDERED: DESI40OI2 TOPICAL (07:24)
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
[2016-03-24 08:06] VITALS: BP 133/85; PULSE 86; RESP 18; TEMP 97.9; O2SAT 94
[2016-03-24] MEDS: RIVAROXABAN 15 MG TAB PO SCH (08:36)
[2016-03-24] MEDS: SODIUM CHLORIDE 0.9% FLUSH 5 ML FLUSH FLUSH SCH (08:36)
[2016-03-24] MEDS: DOCUSATE SODIUM 100 MG CAP PO SCH (08:36)
[2016-03-24] MEDS: ACETAMINOPHEN/HYDROcodone 325 MG/7.5 MG TAB PO PRN (08:36)
[2016-03-24] MEDS: SILVER SULFADIAZINE 1% CR 400 GM JAR TOPICAL SCH (08:37)
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
== END 2016-03-24 15:13 | disposition home or self-care (01) | DRG 301 ==
LOC: NETRI 12:35 → NEDA 20:20 → NEPGCP 23:59 → OBSVTOIN 03-23 13:06
PROVIDERS: ADMIT Hospitalist; ATTEND Hospitalist
DX: I82.402 Acute embolism and thrombosis of unspecified deep veins of left lower extremity (principal); E87.6 Hypokalemia; F17.210 Nicotine dependence, cigarettes, uncomplicated; Z91.19 Patient's noncompliance with other medical treatment and regimen
CPT/HCPCS: 80048; 80053; 85025; 85610; 85730; 93971; 96374; 96375; G0378; J1644; J1650; J1885; J2270

== ENCOUNTER 2016-05-19 17:43 | Emergency (ER) | payer OTHER ==
[~2016-05-19] VITALS: Ht 177.8 cm; Wt 77.0 kg
[~2016-05-19 17:43] MED LIST changes: -COUM5TAB PO; +DESI40OI2 TOPICAL; +SILV1CRE20 TOPICAL; +XARE15TA PO; +XARE20TA PO
[2016-05-19 17:45] VITALS: BP 134/86; PULSE 91; RESP 17; TEMP 98.3; O2SAT 98
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
[2016-05-19] MEDS ORDERED: SODIUM CHLORIDE 0.9% FLUSH 10 ML FLUSH IV FLUSH PRN (22:00)
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
[2016-05-19] MEDS ORDERED: ONDANSETRON HCL 4 MG/2 ML VIAL IV PUSH ONE (22:15)
[2016-05-19] MEDS ORDERED: MORPHINE SULFATE 4 MG/ML INJ IV PUSH ONE (22:15)
[2016-05-19] MEDS ORDERED: SODIUM CHLOR 0.9% 1000 ML INJ 1,000 ML IV ONE (22:15)
[2016-05-19 22:29] LABS: AUTOMATED NEUTROPHIL # 6.2 TH/MM3 (1.8-7.7); BASOPHIL # 0.1 TH/MM3 (0-0.2); BASOPHIL % 1.1 % (0.0-2.0); EOSINOPHIL # 0.4 TH/MM3 (0-0.4); EOSINOPHIL % 3.8 % (0.0-4.0); HEMATOCRIT 39.8 % (39.0-51.0); HEMO FLAGS DIFF FINAL; LYMPH % 31.4 % (9.0-44.0); LYMPHOCYTE # 3.5 TH/MM3 (1.0-4.8); MEAN CELL VOLUME 86.4 FL (80.0-100.0); MEAN CORPUSCULAR HGB CONC 33.6 % (32.0-36.0); MONO % 8.4 % (0.0-8.0); NEUT % 55.3 % (16.0-70.0); PLATELET COUNT 474 TH/MM3 (150-450); RED CELL DISTRIBUTION WIDTH 16.1 % (11.6-17.2); WHITE BLOOD COUNT 11.1 TH/MM3 (4.0-11.0)
[2016-05-19 22:30] VITALS: O2SAT 94
[2016-05-19 22:32] VITALS: BP 128/90; PULSE 84; RESP 18; O2SAT 98
[2016-05-19 22:46] LABS: APTT (PATIENT) 30.1 SEC (24.3-30.1)
[2016-05-19 22:55] LABS: BICARBONATE 26.6 MEQ/L (21.0-32.0)
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
[2016-05-20] MEDS ORDERED: RIVAROXABAN 20 MG TAB PO ONE (00:45)
[2016-05-20] MEDS ORDERED: XARE20TA PO (01:18)
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
[2016-05-20] MEDS ORDERED: ACETAMINOPHEN/HYDROcodone 325 MG/5 MG TAB PO ONE (01:45)
[2016-05-20 10:46] VITALS: BP 138/90; TEMP 98
== END 2016-05-20 10:47 | disposition home or self-care (01) ==
LOC: NEPE 17:43
DX: I82.502 Chronic embolism and thrombosis of unspecified deep veins of left lower extremity (principal); I87.002 Postthrombotic syndrome without complications of left lower extremity; F17.210 Nicotine dependence, cigarettes, uncomplicated; F12.90 Cannabis use, unspecified, uncomplicated
CPT/HCPCS: 80048; 85025; 85610; 85730; 93971; 96361; 96374; 96375; 99284; J2270; J2405; J7030